=== PATIENT | female | born 1995 | race Caucasian/White ===

== ENCOUNTER 2019-05-03 20:48 | Emergency (ER) | payer BC, OTHER ==
[2019-05-03] MEDS ORDERED: KETOROLAC 30 MG/ML INJ ONE (21:34)
[2019-05-03] MEDS ORDERED: DIAZEPAM 5 MG TABLET ONE (21:34)
--- NOTE | 2019-05-03 21:53 | ER ---
Nurse's Notes [facility] Name: Nahomy Ayers Age: 23 yrs Sex: Female : 1995 Arrival Date: 05/03/2019 Time: 20:50 Bed 14 Private MD: Diagnosis: Low back pain;Radiculopathy, lumbosacral region Presentation: 05/03 21:00 Presenting complaint: Patient states: Low back pain for couple days mostly on right ca1 side and sometimes radiates to the front. Today, felt numbness of the R leg. Has Cooley Rods for scoliosis. Transition of care: patient was not received from another setting of care. Onset of symptoms was May 03, 2019. Risk Assessment: Do you want to hurt yourself or someone else? Patient reports no desire to harm self or others. Initial Sepsis Screen: Does the patient meet any 2 criteria? No. Patient's initial sepsis screen is negative. Does the patient have a suspected source of infection? No. Patient's initial sepsis screen is negative. Care prior to arrival: None. 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 - Coronavirus screen:: The patient has NOT traveled to [place] in the past 14 days. The patient has NOT had contact with known/suspected case of Coronavirus?. - Social history:: Smoking status: Patient reports the use of cigarette tobacco products, 5 cigarettes a day. - Ebola Screening: : Patient negative for fever greater than or equal to 101.5 degrees Fahrenheit, and additional compatible Ebola Virus Disease symptoms Patient denies exposure to infectious person Patient denies travel to an Ebola-affected area in the 21 days before illness onset No symptoms or risks identified at this time. Screenin:10 Abuse screen: Denies threats or abuse. Denies injuries from another. Nutritional rr5 screening: No deficits noted. Tuberculosis screening: No symptoms or risk factors identified. Fall Risk None identified. Total Metcalf Fall Scale indicates No Risk (0-24 pts). Assessment: 21:00 General: Appears in no apparent distress. uncomfortable, Behavior is calm, cooperative, rr5 appropriate for age. 21:00 Pain: Complains of pain in back Pain radiates to right leg Pain currently is 9 out of rr5 10 on a pain scale. Quality of pain is described as numb, Pain began gradually, Is intermittent. Neuro: Level of Consciousness is awake, alert, obeys commands, Oriented to person, place, time, situation, Appropriate for age. Cardiovascular: Capillary refill < 3 seconds Patient's skin is warm and dry. Respiratory: Airway is patent Respiratory effort is even, unlabored, Respiratory pattern is regular, symmetrical. GI: No signs and/or symptoms were reported involving the gastrointestinal system. : No signs and/or symptoms were reported regarding the genitourinary system. EENT: No signs and/or symptoms were reported regarding the EENT system. Derm: Skin is intact, is healthy with good turgor, Skin temperature is warm. Musculoskeletal: Capillary refill < 3 seconds, Reports numbness in right leg. 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 Patient states symptoms have improved. 22:22 Reassessment: Patient appears in no apparent distress at this time. Patient is alert, rr5 oriented x 3, equal unlabored respirations, skin warm/dry/pink. discharge instruction given and explained to patient without complaints made, pain reassessment 08/22. verbalized she is comfortable going home. Patient states symptoms have improved. Vital Signs: 21:00 BP 113 / 72; Pulse 75; Resp 16 S; Temp 98(TE); Pulse Ox 100% on R/A; Weight 58.97 kg ca1 (R); Height 5 ft. 3 in. (160.02 cm) (R); 21:30 BP 110 / 67; Pulse 70; Resp 15; Pulse Ox 98% ; Pain 9/10; rr5 22:26 BP 121 / 74; Pulse 64; Resp 16; Temp 98.2; Pulse Ox 100% ; rr5 21:00 Body Mass Index 23.03 (58.97 kg, 160.02 cm) ca1 ED Course: 20:50 Patient arrived in ED. cl3 20:57 [facility]C [facility] snw 20:57 Jose David Rudd MD is Attending Physician. snw 21:00 Arm band placed on right wrist. ca1 21:02 Ben Chávez, RN is Primary Nurse. rr5 21:03 Triage completed. ca1 21:05 Patient has correct armband on for positive identification. Bed in low position. Call rr5 light in reach. Pulse ox on. NIBP on. 21:13 Urine Microscopic Only Sent. ds4 21:13 Urine Culture Sent. ds4 21:14 Urine Dipstick--Ancillary (enter results) Sent. ds4 22:25 No provider procedures requiring assistance completed. Patient did not have IV access rr5 during this emergency room visit. Administered Medications: 21:34 Drug: TORadol 30 mg Route: IM; Site: right deltoid; rr5 22:15 Follow up: Response: No adverse reaction; Pain is decreased rr5 21:35 Drug: Valium 5 mg Route: PO; rr5 22:15 Follow up: Response: No adverse reaction; Temperature is decreased rr5 Outcome: 21:52 Discharge ordered by MD. snw 22:25 Discharged to home ambulatory, with family. rr5 22:25 Condition: stable 22:25 Discharge instructions given to patient, Instructed on discharge instructions, follow up and referral plans. medication usage, Demonstrated understanding of instructions, follow-up care, medications, Prescriptions given X 2. 22:29 Patient left the ED. rr5 Signatures: Reema Nixon FNP-C LAND RESOURCE SPECIALIST-Csnw Nasim Kinsey ds4 Ben Chávez RN RN rr5 Berkley Mejias RN RN ca1 Lillie Iqbal cl3 Corrections: (The following items were deleted from the chart) 22:28 22:26 BP 121 / 74; Pulse 64bpm; Resp 16bpm; Pulse Ox 100%; Temp 17F; rr5 rr5
--- NOTE | 2019-05-03 21:54 | EDPHYS ---
Physician Documentation [facility] Name: Nahomy Ayers Age: 23 yrs Sex: Female : 1995 Arrival Date: 05/03/2019 Time: 20:50 Bed 14 Private MD: ED Physician Jose David Rudd HPI: 05/03 21:17 This 23 yrs old Female presents to ER via Ambulatory with complaints of Low snw Back Pain, Numbness In Legs. 21:17 The patient presents with pain that is acute, that is chronic, and decreased range of snw motion. The symptoms are located in the low back. The pain radiates to the right hip and lateral aspect of right thigh. The problem was sustained when bending over, from a chronic condition, the patient has known disc disease. Onset: The symptoms/episode began/occurred this morning. Associated signs and symptoms: Pertinent positives: numbness. Severity of symptoms: At their worst the symptoms were moderate, severe. The patient has experienced similar episodes in the past, chronically. It is unknown whether or not the patient has recently seen a physician. 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 - Coronavirus screen:: The patient has NOT traveled to [place] in the past 14 days. The patient has NOT had contact with known/suspected case of Coronavirus?. - Social history:: Smoking status: Patient reports the use of cigarette tobacco products, 5 cigarettes a day. - Ebola Screening: : Patient negative for fever greater than or equal to 101.5 degrees Fahrenheit, and additional compatible Ebola Virus Disease symptoms Patient denies exposure to infectious person Patient denies travel to an Ebola-affected area in the 21 days before illness onset No symptoms or risks identified at this time. ROS: 21:15 Constitutional: Negative for fever, chills, and weight loss, Eyes: Negative for injury, snw pain, redness, and discharge, ENT: Negative for injury, pain, and discharge, Neck: Negative for injury, pain, and swelling, Cardiovascular: Negative for chest pain, palpitations, and edema, Respiratory: Negative for shortness of breath, cough, wheezing, and pleuritic chest pain, Abdomen/GI: Negative for abdominal pain, nausea, vomiting, diarrhea, and constipation, Back: Negative for injury, hx of back pain secondary to scoliosis, bent this am and "got stuck", pt states right lateral hip and thigh with tingling and paresthesias : Negative for injury, bleeding, discharge, and swelling, MS/Extremity: Negative for injury and deformity, Skin: Negative for injury, rash, and discoloration, Neuro: Negative for headache, weakness, numbness, tingling, and seizure. Exam: 21:14 Constitutional: This is a well developed, well nourished patient who is awake, alert, snw and in no acute distress. Head/Face: Normocephalic, atraumatic. Eyes: Pupils equal round and reactive to light, extra-ocular motions intact. Lids and lashes normal. Conjunctiva and sclera are non-icteric and not injected. Cornea within normal limits. Periorbital areas with no swelling, redness, or edema. ENT: Nares patent. No nasal discharge, no septal abnormalities noted. Tympanic membranes are normal and external auditory canals are clear. Oropharynx with no redness, swelling, or masses, exudates, or evidence of obstruction, uvula midline. Mucous membranes moist. Neck: Trachea midline, no thyromegaly or masses palpated, and no cervical lymphadenopathy. Supple, full range of motion without nuchal rigidity, or vertebral point tenderness. No Meningismus. Chest/axilla: Normal chest wall appearance and motion. Nontender with no deformity. No lesions are appreciated. Cardiovascular: Regular rate and rhythm with a normal S1 and S2. No gallops, murmurs, or rubs. Normal PMI, no JVD. No pulse deficits. Respiratory: Lungs have equal breath sounds bilaterally, clear to auscultation and percussion. No rales, rhonchi or wheezes noted. No increased work of breathing, no retractions or nasal flaring. Abdomen/GI: Soft, non-tender, with normal bowel sounds. No distension or tympany. No guarding or rebound. No evidence of tenderness throughout. Skin: Warm, dry with normal turgor. Normal color with no rashes, no lesions, and no evidence of cellulitis. MS/ Extremity: Pulses equal, no cyanosis. Neurovascular intact. Full, normal range of motion. Neuro: Awake and alert, GCS 15, oriented to person, place, time, and situation. Cranial nerves II-XII grossly intact. Motor strength 5/5 in all extremities. Sensory grossly intact. Cerebellar exam normal. Normal gait. Psych: Awake, alert, with orientation to person, place and time. Behavior, mood, and affect are within normal limits. 21:14 Back: pain, that is moderate, ROM is painful, CVA tenderness, is absent, muscle spasm, is not present. Vital Signs: 21:00 BP 113 / 72; Pulse 75; Resp 16 S; Temp 98(TE); Pulse Ox 100% on R/A; Weight 58.97 kg ca1 (R); Height 5 ft. 3 in. (160.02 cm) (R); 21:30 BP 110 / 67; Pulse 70; Resp 15; Pulse Ox 98% ; Pain 9/10; rr5 22:26 BP 121 / 74; Pulse 64; Resp 16; Temp 98.2; Pulse Ox 100% ; rr5 21:00 Body Mass Index 23.03 (58.97 kg, 160.02 cm) ca1 MDM: 21:03 Patient medically screened. snw 21:53 Data reviewed: vital signs, nurses notes. Data interpreted: Pulse oximetry: on room air snw is 100 %. Interpretation: normal. Counseling: I had a detailed discussion with the patient and/or guardian regarding: the historical points, exam findings, and any diagnostic results supporting the discharge/admit diagnosis, lab results, the need for outpatient follow up, to return to the emergency department if symptoms worsen or persist or if there are any questions or concerns that arise at home. Response to treatment: the patient's symptoms have markedly improved after treatment. Special discussion: Based on the history and exam findings, there is no indication for further emergent testing or inpatient evaluation. I discussed with the patient/guardian the need to see the back specialist for further evaluation of the symptoms. I discussed with the patient/guardian the need to see the primary care provider for further evaluation of the symptoms. 05/03 20:58 Order name: Urine Culture snw 05/03 20:58 Order name: Urine Microscopic Only; Complete Time: 22:25 snw 05/03 21:13 Order name: Urine Dipstick--Ancillary (enter results); Complete Time: 22:09 ds4 05/03 21:14 Order name: Urine --Ancillary (enter results); Complete Time: 22:09 ds4 05/03 20:58 Order name: Urine Test (obtain specimen); Complete Time: 21:13 snw 05/03 20:58 Order name: Urine Dipstick-Ancillary (obtain specimen); Complete Time: 21:13 snw Administered Medications: 21:34 Drug: TORadol 30 mg Route: IM; Site: right deltoid; rr5 22:15 Follow up: Response: No adverse reaction; Pain is decreased rr5 21:35 Drug: Valium 5 mg Route: PO; rr5 22:15 Follow up: Response: No adverse reaction; Temperature is decreased rr5 Disposition: 05/04 08:20 Co-signature as Attending Physician, Jose David Rudd MD I agree with the assessment and tw4 plan of care. Disposition: 05/03/19 21:52 Discharged to Home. Impression: Low back pain, Radiculopathy, lumbosacral region. - Condition is Stable. - Discharge Instructions: Back Pain, Adult, Lumbosacral Radiculopathy, Musculoskeletal Pain, Cryotherapy, Rehydration, Adult, Heat Therapy. - Prescriptions for Diclofenac Sodium 75 mg Oral Tablet Sustained Release - take 1 tablet by ORAL route 2 times per day; 30 tablet. orphenadrine citrate 100 mg Oral Tablet Sustained Release - take 1 tablet by ORAL route 2 times per day As needed; 20 tablet. - Work release form, Medication Reconciliation Form, Thank You Letter, Antibiotic Education, Prescription Opioid Use form. - Follow up: Emergency Department; When: As needed; Reason: Worsening of condition. Follow up: Private Physician; When: 2 - 3 days; Reason: Recheck today's complaints, Continuance of care, Re-evaluation by your physician. - Problem is an acute exacerbation. - Symptoms are unchanged. Signatures: Dispatcher [employer] EDMS Reema Nixon, CORNEL-C MEAL ATTENDANT-Csnw Jose David Rudd MD MD tw4 Ben Chávez RN RN rr5 Berkley Mejias RN RN ca1 Corrections: (The following items were deleted from the chart) 02/19 22:29 21:52 05/03/2019 21:52 Discharged to Home. Impression: Low back pain; Radiculopathy, rr5 lumbosacral region. Condition is Stable. Forms are Medication Reconciliation Form, Thank You Letter, Antibiotic Education, Prescription Opioid Use. Follow up: Emergency Department; When: As needed; Reason: Worsening of condition. Follow up: Private Physician; When: 2 - 3 days; Reason: Recheck today's complaints, Continuance of care, Re-evaluation by your physician. Problem is an acute exacerbation. Symptoms are unchanged. snw
[2019-05-03 22:04] LABS: Urine Blood NEGATIVE (NEG); Urine Glucose NEGATIVE (NEG); Urine Protein NEGATIVE (NEG); Urine Specific Gravity >1.030 (1.005-1.030)
[2019-05-03 22:22] LABS: Urine Culture Reflex Order NOT NEEDED
[2019-05-03 22:23] LABS: Urine Bacteria 20-50 /HPF (<20); Urine RBC <5 /HPF (NONE SEEN)
[2019-05-03 23:24] VITALS: BP 121/74; TEMP 98.2; O2SAT 100
== END 2019-05-03 22:29 | disposition home or self-care (01) ==
LOC: ER 20:48
DX: M54.17 Radiculopathy, lumbosacral region (principal)
CPT/HCPCS: 81003; 81015; 81025; 87086; 87088; 96372; 99284

== ENCOUNTER 2021-02-09 21:13 | Emergency (ER) | payer BC, OTHER ==
[2021-02-09] MEDS ORDERED: ACETAMINOPHEN 500 MG TAB ONE (23:31)
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
[2021-02-09 23:57] VITALS: TEMP 98.5; O2SAT 99
[2021-02-09 23:58] VITALS: BP 120/48
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
== END 2021-02-09 23:52 | disposition home or self-care (01) ==
LOC: ER 21:13
DX: M25.552 Pain in left hip (principal); V40.0XXA Car driver injured in collision with pedestrian or animal in nontraffic accident, initial encounter; Y93.89 Activity, other specified; Y92.410 Unspecified street and highway as the place of occurrence of the external cause; Z88.1 Allergy status to other antibiotic agents
CPT/HCPCS: 99283

== ENCOUNTER 2023-02-25 10:54 | Emergency (ER) | payer SELFPAY ==
--- OUTSIDE RECORDS SUMMARY | 2023-02-25 10:56 | XMS REPORT | Continuity of Care Document ---
Author Name Unknown Address [address] [place] [address] [facility] thconnect Address 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 Name Role Phone JOCELYNE CORDON Primary Care Physician Unav ailable Yohan Fernandez MD Attending Clinician YOHAN FERNANDEZ Attending Clinician Unavaila ble YOHAN FERNANDEZ Admitting Clinician Unavaila ble Problems Condition Name Condition Details Condition Category Status Onset Date Resolution Date Last Treatment Date Treating Clinician Comments Source Uterine size-date discrepanc y, antepartum , unspecifie d trimester Uterine size-date discrepanc y, antepartum , unspecifie d trimester Disease Active 10-09 00:00: 00 [facility] Chlamydia trachomati s infection of lower genitourin kiana sites Chlamydia trachomati s infection of lower genitourin kiana sites Disease Active 09-30 00:00: 00 [facility] Allergies, Adverse Reactions, Alerts Allergy Name Allergy Type Status Severity Reaction(s) Onset Date Inactive Date Treating Clinician Comments Source Amoxicil jeannette-Pot Clavulan ate Propensi ty to adverse reaction s Active Swelling 03-22 00:00: 00 [facility] AMOXICIL JEANNETTE-POT CLAVULAN ATE DRUG Active Swelling 03-22 00:00: 00 [facility] NO KNOWN ALLERGIE S Drug Class Active [facility] Social History Social Habit Start Date Stop Date Quantity Comments Source Exposure to SARS-CoV-2 (event) 2022-03-12 00:00:00 2022-03-22 19:57:00 Not sure [facility] Alcohol intake 2022-03-22 00:00:00 2022-03-22 00:00:00 Current non-drinker of alcohol (finding) [facility] Tobacco use and exposure 2014-09-25 00:00:00 2014-09-25 00:00:00 Smokeless tobacco non-user [facility] History of tobacco use 2014-09-18 00:00:00 Cigarette Smoker [facility] Sex Assigned At 1995 00:00:00 1995 00:00:00 [facility] Smoking Status Start Date Stop Date Source Ex-smoker 2014-09-25 00:00:00 2014[facility] Ordered Medication Name Filled Medication Name Start Date Stop Date Current Medication? Ordering Clinician Indication Dosage Frequency Signature (SIG) Comments Components Source ibuprofen (IBU) tablet 600 mg 03-23 01:00: 00 03-23 01:08 :00 No 600mg 600 mg, Oral, ONCE, 1 dose, On 03/22/22 at 1900, BORA [facility] vitamin w/FA (PRENATABS RX) tablet 09-25 00:00: 00 Yes 1{tbl} Take 1 Tab by mouth daily. [facility] Vital Signs Vital Name Observation Time Observation Value Comments S ource Systolic blood pressure 2022-03-23 00:34:00 129 mm[Hg] [place] [facility] Diastolic blood pressure 2022-03-23 00:34:00 87 mm[Hg] [place] [facility] Heart rate 2022-03-23 00:34:00 85 /min [facility] Body temperature 2022-03-23 00:34:00 37.11 [place] [facility] Respiratory rate 2022-03-23 00:34:00 18 /min [facility] Body height 2022-03-23 00:34:00 160 cm [facility] Body weight 2022-03-23 00:34:00 58.968 kg [facility] BMI 2022-03-23 00:34:00 23.03 kg/m2 [facility] Oxygen saturation in Arterial blood by Pulse oximetry 2022-03-23 00:34:00 100 /min [facility] Procedures Procedure Date / Time Performed Performing Clinicia n Source XR ANKLE <3 VW LEFT 2022-03-23 01:16:42 Guy Fernandez [facility] XR FOOT 3+ VW LEFT 2022-03-23 01:16:42 Danii Fernandez [facility] NOTICE OF PRIVACY PRACTICES 2022-03-23 00:30:17 Doctor Unassigned, [place] [facility] Encounters Start Date/Time End Date/Time Encounter Type Admission Type Attending Clinicians Care Facility Care Department Encounter ID Source 2022-03-22 18:35:00 2022-03-22 19:59:00 Emergency Yohan Fernandez [facility] [id number] [facility] 2022-03-22 18:35:00 2022-03-22 19:59:00 Emergency X YOHAN FERNANDEZ ERT [id number] [facility]
[2023-02-25 11:40] LABS: SARS-CoV-2 Antigen Rapid Res Negative (Negative)
--- NOTE | 2023-02-25 13:22 | ER ---
Nurse's Notes [facility] Name: Nahomy Ayers Age: 27 yrs Sex: Female : 1995 Arrival Date: 02/25/2023 Time: 10:54 Bed 10 Private MD: Diagnosis: Influenza due to other identified influenza virus with gastrointestinal manifestations-influenza B;Fever, unspecified;Influenza due to other identified influenza virus with other respiratory manifestations-Influenza B Presentation: 02/25 11:09 Chief complaint: Patient states: Congested, headache, body aches, sore throat and nj1 diarrhea, onset Wednesday, getting worse. Denies fever. Has taken dayquil, mucinex and flonase. Coronavirus screen: Vaccine status: Patient reports being unvaccinated. Ebola Screen: Patient denies travel to an Ebola-affected area in the 21 days before illness onset. Initial Sepsis Screen: Does the patient meet any 2 criteria? HR > 90 bpm. No. Patient's initial sepsis screen is negative. Does the patient have a suspected source of infection? No. Patient's initial sepsis screen is negative. Risk Assessment: Do you want to hurt yourself or someone else? Patient reports no desire to harm self or others. Onset of symptoms was February 21, 2023. 11:09 Method Of Arrival: Ambulatory [facility] 11:09 Acuity: PHANI 4 sc1 Triage Assessment: 13:39 General: Appears ill, Behavior is cooperative, appropriate for age, anxious. Pain: bp Complains of pain in head. Historical: - Allergies: 11:12 Augmentin; nj1 - PMHx: 11:12 scoliosis; nj1 - PSHx: 11:12 Decompression surgery for Chiari malformation; nj1 - Immunization history:: Client reports having NOT received the Covid vaccine. - Social history:: Smoking status: Patient reports the use of cigarette tobacco products, smokes one-half pack cigarettes per day. - Family history:: not pertinent. Screenin:39 [facility] ED Fall Risk Assessment (Adult) History of falling in the last 3 months, bp including since admission No falls in past 3 months (0 pts). Abuse screen: Denies threats or abuse. Denies injuries from another. Nutritional screening: No deficits noted. Tuberculosis screening: No symptoms or risk factors identified. Vital Signs: 11:09 BP 135 / 81; Pulse 101; Resp 18; Temp 98.3(O); Pulse Ox 100% ; Weight 63.5 kg; Height 5 nj1 ft. 3 in. ; Pain 8/10; 11:09 Body Mass Index 24.80 (63.50 kg, 160.02 cm) nj1 11:09 Pain Scale: Adult [facility] ED Course: 10:55 Patient arrived in ED. rosendo 10:56 Adolfo Hayward MD is Attending Physician. [facility] 11:12 Triage completed. nj1 11:12 Arm band placed on right wrist. sc1 12:13 Jacob Mcrae, RN is Primary Nurse. bp 13:39 Patient has correct armband on for positive identification. bp 13:39 No provider procedures requiring assistance completed. Patient did not have IV access bp during this emergency room visit. Administered Medications: 13:33 CANCELLED (Duplicate Order): [id number] mg PO once rosendo 13:38 Drug: Oseltamivir PO 75 mg PO once Route: PO; bp 13:39 Follow up: Response: No adverse reaction bp 13:38 Not Given (Patient Refused): [id number] mg IM once bp 13:38 Drug: Ondansetron Oral Disintegrating Tablet Oral Disintegrating Tablet 4 mg PO once bp Route: PO; 13:39 Follow up: Response: No adverse reaction bp Medication: 13:39 VIS not applicable for this client. bp Outcome: 13:21 Discharge ordered by . rosendo 13:39 Discharged to home ambulatory, bp 13:39 Condition: stable 13:39 Discharge instructions given to patient, Instructed on discharge instructions, follow up and referral plans. medication usage, Demonstrated understanding of instructions, follow-up care, medications, Prescriptions given X 3, 13:40 Patient left the ED. bp Signatures: Adolfo Hayward MD MD cha Peltier, Brian, RN RN bp Shawanda Uriostegui, RN RN nj1
--- NOTE | 2023-02-25 13:22 | EDPHYS ---
Physician Documentation [facility] Name: Nahomy Ayers Age: 27 yrs Sex: Female : 1995 Arrival Date: 02/25/2023 Time: 10:54 Bed 10 Private MD: ED Physician Adolfo Hayward HPI: 02/25 13:17 This 27 yrs old Female presents to ER via Ambulatory with complaints of Flu rosendo Symptoms. 13:17 Modifying factors: The symptoms are alleviated by nothing, the symptoms are aggravated rosendo by nothing. The patient presents to the emergency department with diarrhea, that is intermittent. Possible causes: sick contacts. The symptoms are aggravated by movement, The symptoms are alleviated by remaining still. Associated signs and symptoms: Pertinent positives: abdominal pain, diarrhea. The patient reports fever, not measured (subjective). Historical: - Allergies: 11:12 Augmentin; nj1 - PMHx: 11:12 scoliosis; nj1 - PSHx: 11:12 Decompression surgery for Chiari malformation; nj1 - Immunization history:: Client reports having NOT received the Covid vaccine. - Social history:: Smoking status: Patient reports the use of cigarette tobacco products, smokes one-half pack cigarettes per day. - Family history:: not pertinent. ROS: 13:17 Constitutional: Negative for fever, chills, and weight loss, Eyes: Negative for injury, rosendo pain, redness, and discharge, ENT: Negative for injury, pain, and discharge, Neck: Negative for injury, pain, and swelling, Cardiovascular: Negative for chest pain, palpitations, and edema, Abdomen/GI: Negative for abdominal pain, nausea, vomiting, diarrhea, and constipation, Back: Negative for injury and pain, : Negative for injury, bleeding, discharge, and swelling, MS/Extremity: Negative for injury and deformity, Skin: Negative for injury, rash, and discoloration, Neuro: Negative for headache, weakness, numbness, tingling, and seizure, Psych: Negative for depression, anxiety, suicide ideation, homicidal ideation, and hallucinations, Allergy/Immunology: Negative for hives, rash, and allergies, Endocrine: Negative for neck swelling, polydipsia, polyuria, polyphagia, and marked weight changes, Hematologic/Lymphatic: Negative for swollen nodes, abnormal bleeding, and unusual bruising, 13:17 Respiratory: Positive for cough, Exam: 13:17 Constitutional: This is a well developed, well nourished patient who is awake, alert, rosendo and in no acute distress. Head/Face: Normocephalic, atraumatic. Eyes: Pupils equal round and reactive to light, extra-ocular motions intact. Lids and lashes normal. Conjunctiva and sclera are non-icteric and not injected. Cornea within normal limits. Periorbital areas with no swelling, redness, or edema. ENT: Nares patent. No nasal discharge, no septal abnormalities noted. Tympanic membranes are normal and external auditory canals are clear. Oropharynx with no redness, swelling, or masses, exudates, or evidence of obstruction, uvula midline. Mucous membranes moist. Neck: Trachea midline, no thyromegaly or masses palpated, and no cervical lymphadenopathy. Supple, full range of motion without nuchal rigidity, or vertebral point tenderness. No Meningismus. Chest/axilla: Normal chest wall appearance and motion. Nontender with no deformity. No lesions are appreciated. Cardiovascular: Regular rate and rhythm with a normal S1 and S2. No gallops, murmurs, or rubs. Normal PMI, no JVD. No pulse deficits. Respiratory: Lungs have equal breath sounds bilaterally, clear to auscultation and percussion. No rales, rhonchi or wheezes noted. No increased work of breathing, no retractions or nasal flaring. Abdomen/GI: Soft, non-tender, with normal bowel sounds. No distension or tympany. No guarding or rebound. No evidence of tenderness throughout. Back: No spinal tenderness. No costovertebral tenderness. Full range of motion. Skin: Warm, dry with normal turgor. Normal color with no rashes, no lesions, and no evidence of cellulitis. MS/ Extremity: Pulses equal, no cyanosis. Neurovascular intact. Full, normal range of motion. Neuro: Awake and alert, GCS 15, oriented to person, place, time, and situation. Cranial nerves II-XII grossly intact. Motor strength 5/5 in all extremities. Sensory grossly intact. Cerebellar exam normal. Normal gait. Vital Signs: 11:09 BP 135 / 81; Pulse 101; Resp 18; Temp 98.3(O); Pulse Ox 100% ; Weight 63.5 kg; Height 5 nj1 ft. 3 in. ; Pain 8/10; 11:09 Body Mass Index 24.80 (63.50 kg, 160.02 cm) nj1 11:09 Pain Scale: Adult nj1 MDM: 10:56 Patient medically screened. [facility] 02/25 10:56 Order name: Flu; Complete Time: 13:12 [facility] 02/25 10:56 Order name: SARS RAPID; Complete Time: 13:12 [facility] 02/25 13:16 Order name: PO challenge; Complete Time: 13:38 [facility] Administered Medications: 13:33 CANCELLED (Duplicate Order): [id number] mg PO once rosendo 13:38 Drug: Oseltamivir PO 75 mg PO once Route: PO; bp 13:39 Follow up: Response: No adverse reaction bp 13:38 Not Given (Patient Refused): [id number] mg IM once bp 13:38 Drug: Ondansetron Oral Disintegrating Tablet Oral Disintegrating Tablet 4 mg PO once bp Route: PO; 13:39 Follow up: Response: No adverse reaction bp Disposition Summary: 02/25/23 13:21 Discharge Ordered Notes: Location: Home [facility] Problem: new [facility] Symptoms: have improved [facility] Condition: Stable [facility] Diagnosis - Influenza due to other identified influenza virus with gastrointestinal [facility] manifestations - influenza B - Fever, unspecified rosendo - Influenza due to other identified influenza virus with other respiratory [facility] manifestations - Influenza B Followup: [facility] - With: Private Physician - When: 2 - 3 days - Reason: Recheck today's complaints, Continuance of care, Re-evaluation by your physician Discharge Instructions: - Discharge Summary Sheet [facility] - Food Choices to Help Relieve Diarrhea, Adult [facility] - Diarrhea, Adult rosendo - Fever, Adult rosendo - Influenza, Adult [facility] - Pharyngitis [facility] - Upper Respiratory Infection, Adult, [id number] [facility] - Influenza, Adult, [id number] [facility] Forms: - Medication Reconciliation Form [facility] - Thank You Letter [facility] - Antibiotic Education [facility] - Prescription Opioid Use [facility] - Patient Portal Instructions [facility] - Leadership Thank You Letter [facility] Prescriptions: - ondansetron 4 mg Oral Tablet,disintegrating - take 1 tablet ORAL route daily for 5 days; 20 tablet; Refills: 0, Product rosendo Selection Permitted - Zithromax Z-Elroy 250 mg Oral Tablet - take 1 tablet ORAL route as directed for 5 days Day 1 - take two (2) tablets [facility] one time. Day 2, 3, 4 , 5 take one (1) tablet once daily.; 6 tablet; Refills: 0, Product Selection Permitted - Tamiflu 75 mg Oral capsule - take 1 tablet ORAL route every 12 hours for 5 days; 10 tablet; Refills: 0, rosendo Product Selection Permitted Signatures: Dispatcher [employer] Adolfo Egan MD MD cha Peltier, Brian RN RN bp Shawanda Uriostegui RN RN nj1 Corrections: (The following items were deleted from the chart) 13:33 13:12 AZITHromycin PO 500 mg PO once ordered. rosendo robbins
[2023-02-25] MEDS ORDERED: ONDANSETRON 4 MG (ODT) TAB ONE (13:30)
[2023-02-25] MEDS ORDERED: KETOROLAC 30 MG/ML INJ ONE (13:30)
[2023-02-25] MEDS ORDERED: OSELTAMIVIR 75 MG CAP PO ONE (13:31)
[2023-02-25 14:03] VITALS: BP 135/81; TEMP 98.3; O2SAT 100
== END 2023-02-25 13:40 | disposition home or self-care (01) ==
LOC: ER 10:54
DX: J10.2 Influenza due to other identified influenza virus with gastrointestinal manifestations (principal); J10.1 Influenza due to other identified influenza virus with other respiratory manifestations; Z11.52 Encounter for screening for COVID-19
CPT/HCPCS: 36415; 87804; 87811; 99283; Q0162

== ENCOUNTER 2023-09-05 07:56 | Emergency (ER) | payer SELFPAY ==
[2023-09-05] MEDS ORDERED: ACETAMINOPHEN 500 MG TAB ONE (08:20)
[2023-09-05] MEDS ORDERED: KETOROLAC 30 MG/ML INJ ONE (08:21)
[2023-09-05 09:17] LABS: SARS-CoV-2 Antigen CONTROL BLUE LINE VIS/BG OK
[2023-09-05 09:18] LABS: SARS-CoV-2 Antigen Rapid Res Positive (Negative)
--- NOTE | 2023-09-05 09:38 | ER ---
Nurse's Notes [facility] Name: Nahomy Ayers Age: 28 yrs Sex: Female : 1995 Arrival Date: 09/05/2023 Time: 07:56 Bed 19 Private MD: Diagnosis: COVID-19 Presentation: 09/04 08:06 Chief complaint: Patient states: Cough, congestion, NARANJO, fever since yesterday. Her ll1 child is also sick. No N/V/D. Coronavirus screen: Client denies travel out of the [place] in the last 14 days. chills, congestion, cough unrelated to allergies, fatigue, fever, headache, muscle pain, shaking with chills, Client presents with at least one sign or symptom that may indicate coronavirus-19. Standard/surgical mask placed on the client. Ebola Screen: Patient denies travel to an Ebola-affected area in the 21 days before illness onset. Initial Sepsis Screen: Does the patient meet any 2 criteria? No. Patient's initial sepsis screen is negative. Does the patient have a suspected source of infection? No. Patient's initial sepsis screen is negative. Risk Assessment: Do you want to hurt yourself or someone else? Patient reports no desire to harm self or others. Onset of symptoms was September 04, 2023. 08:06 Method Of Arrival: Ambulatory [facility] 08:06 Acuity: PHANI 4 ll1 Triage Assessment: 08:08 General: Appears uncomfortable, ill, Behavior is calm, cooperative, appropriate for ll1 age. General: Reports chills for fever for feeling ill for fatigue for. Pain: Complains of pain in head Pain currently is 10 out of 10 on a pain scale. Quality of pain is described as aching, throbbing, Pain began 1 day ago. Aggravated by coughing. EENT: Reports nasal congestion. Neuro: Reports headache weakness. Respiratory: Reports cough that is. Derm: Reports rash to chest. Musculoskeletal: Reports body aches. 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 - Infectious Disease History:: Denies. - Social history:: Smoking status: Patient reports the use of cigarette tobacco products, smokes one-half pack cigarettes per day. - Family history:: not pertinent. Screenin:34 [facility] ED Fall Risk Assessment (Adult) History of falling in the last 3 months, ll1 including since admission No falls in past 3 months (0 pts) Confusion or Disorientation No (0 pts) Intoxicated or Sedated No (0 pts) Impaired Gait No (0 pts) Mobility Assist Device Used No (0 pt) Altered Elimination No (0 pt) Score/Fall Risk Level 0 - 2 = Low Risk Maintained a safe environment, Hourly rounding (assess needs \T\ fall precautionary measures) done. Abuse screen: Denies threats or abuse. Nutritional screening: No deficits noted. Tuberculosis screening: No symptoms or risk factors identified. Assessment: 08:34 Reassessment: No changes from previously documented assessment. Patient and/or family ll1 updated on plan of care and expected duration. Pain level reassessed. Patient is alert, oriented x 3, equal unlabored respirations, skin warm/dry/pink. 09:47 Reassessment: No changes from previously documented assessment. Patient and/or family ll1 updated on plan of care and expected duration. Pain level reassessed. Patient is alert, oriented x 3, equal unlabored respirations, skin warm/dry/pink. Vital Signs: 08:06 BP 111 / 76; Pulse 100; Resp 18; Temp 99.3(O); Pulse Ox 95% on R/A; Weight 58.97 kg; ll1 Height 5 ft. 3 in. ; Pain 10/10; 08:52 BP 110 / 75; Pulse 83; Resp 17; Pulse Ox 97% on R/A; ll1 09:47 BP 121 / 72; Pulse 77; Resp 17; Pulse Ox 96% on R/A; Pain 5/10; ll1 08:06 Body Mass Index 23.03 (58.97 kg, 160.02 cm) ll1 08:06 Pain Scale: Adult ll1 09:47 Pain Scale: Adult ll1 ED Course: 07:58 Patient arrived in ED. im 07:59 Alexy Wilde MD is Attending Physician. rt 07:59 Arm band placed on Patient placed in an exam room, on a stretcher. ll1 08:08 Triage completed. ll1 08:12 Cris Blackman, RN is Primary Nurse. 08:28 Provided Education on: ER procedures and process. ll1 08:35 Ailin Iqbal, RN is Primary Nurse. ll1 08:35 Patient has correct armband on for positive identification. Bed in low position. Call ll1 light in reach. Client placed on continuous cardiac and pulse oximetry monitoring. NIBP monitoring applied. 09:48 No provider procedures requiring assistance completed. Patient did not have IV access ll1 during this emergency room visit. Administered Medications: 08:28 Drug: Ketorolac IM 15 mg IM once {Note: pain 10/10.} Route: IM; Site: right deltoid; ll1 09:48 Follow up: Response: No adverse reaction; Temperature is decreased; Pain is decreased; ll1 RASS: Alert and Calm (0) 08:29 Drug: Acetaminophen PO 1000 mg PO once Route: PO; ll1 09:48 Follow up: Response: No adverse reaction; Pain is decreased; RASS: Alert and Calm (0) ll1 Medication: 08:51 VIS not applicable for this client. ll1 Outcome: 09:38 Discharge ordered by . rt 09:48 Discharged to home ambulatory, ll1 09:48 Condition: stable 09:48 Discharge instructions given to patient, Instructed on discharge instructions, follow up and referral plans. Demonstrated understanding of instructions, follow-up care, 09:49 Patient left the ED. ll1 Signatures: Cris Blackman, YIFAN SAHA Ailin Iqbal RN RN ll1 Alexy Wilde MD MD rt Jo Townsend
--- NOTE | 2023-09-05 09:38 | EDPHYS ---
Physician Documentation [facility] Name: Nahomy Ayers Age: 28 yrs Sex: Female : 1995 Arrival Date: 09/05/2023 Time: 07:56 Bed 19 Private MD: ED Physician Alexy Wilde HPI: 09/04 17:35 This 28 yrs old Female presents to ER via Ambulatory with complaints of Flu Symptoms. rt 17:35 Patient presents to the ED with cough, congestion, malaise since yesterday. Patient rt does have sick contacts with her kids. Denies other acute complaints at this time, symptoms are moderate severity, no other aggravating or alleviating factors.. 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 - Infectious Disease History:: Denies. - Social history:: Smoking status: Patient reports the use of cigarette tobacco products, smokes one-half pack cigarettes per day. - Family history:: not pertinent. ROS: 17:35 Cardiovascular: Negative for chest pain, palpitations, and edema, Abdomen/GI: Negative rt for abdominal pain, nausea, vomiting, diarrhea, and constipation, 17:35 Constitutional: Positive for body aches, fatigue, fever, 17:35 Respiratory: Positive for cough, shortness of breath, Exam: 17:35 Constitutional: This is a well developed, well nourished patient who is awake, alert, rt and in no acute distress. Head/Face: Normocephalic, atraumatic. Chest/axilla: Normal chest wall appearance and motion. Nontender with no deformity. No lesions are appreciated. Cardiovascular: Regular rate and rhythm with a normal S1 and S2. No gallops, murmurs, or rubs. Normal PMI, no JVD. No pulse deficits. Respiratory: Lungs have equal breath sounds bilaterally, clear to auscultation and percussion. No rales, rhonchi or wheezes noted. No increased work of breathing, no retractions or nasal flaring. Skin: Warm, dry with normal turgor. Normal color with no rashes, no lesions, and no evidence of cellulitis. MS/ Extremity: Pulses equal, no cyanosis. Neurovascular intact. Full, normal range of motion. Neuro: Awake and alert, GCS 15, oriented to person, place, time, and situation. Cranial nerves II-XII grossly intact. Motor strength 5/5 in all extremities. Sensory grossly intact. Cerebellar exam normal. Normal gait. 17:35 ENT: Mild posterior pharyngeal erythema without exits tonsil hypertrophy, uvula is midline. Vital Signs: 08:06 BP 111 / 76; Pulse 100; Resp 18; Temp 99.3(O); Pulse Ox 95% on R/A; Weight 58.97 kg; ll1 Height 5 ft. 3 in. ; Pain 10/10; 08:52 BP 110 / 75; Pulse 83; Resp 17; Pulse Ox 97% on R/A; ll1 09:47 BP 121 / 72; Pulse 77; Resp 17; Pulse Ox 96% on R/A; Pain 5/10; ll1 08:06 Body Mass Index 23.03 (58.97 kg, 160.02 cm) ll1 08:06 Pain Scale: Adult ll1 09:47 Pain Scale: Adult ll1 MDM: 08:12 Patient medically screened. rt 17:35 Differential Diagnosis Flu, strep, COVID, viral syndrome. Data reviewed: vital signs, rt nurses notes, lab test result(s). Test considered but Not performed: X-ray: Clear breath sounds, low suspicion for pneumonia, x-ray not indicated. Counseling: I had a detailed discussion with the patient and/or guardian regarding the historical points, exam findings, and any diagnostic results supporting the discharge/admit diagnosis, lab results, the need for outpatient follow up, to return to the emergency department if symptoms worsen or persist or if there are any questions or concerns that arise at home. 09/04 08:19 Order name: SARS RAPID; Complete Time: 09:33 rt 09/04 08:19 Order name: Influenza Screen (a \T\ B); Complete Time: 09:33 rt 09/04 08:19 Order name: Strep rt 09/04 09:22 Order name: Throat Culture EDMS Administered Medications: 08:28 Drug: Ketorolac IM 15 mg IM once {Note: pain 10/10.} Route: IM; Site: right deltoid; ll1 09:48 Follow up: Response: No adverse reaction; Temperature is decreased; Pain is decreased; ll1 RASS: Alert and Calm (0) 08:29 Drug: Acetaminophen PO 1000 mg PO once Route: PO; 1 09:48 Follow up: Response: No adverse reaction; Pain is decreased; RASS: Alert and Calm (0) ll1 Disposition Summary: 09/05/23 09:38 Discharge Ordered Notes: Location: Home rt Problem: new rt Symptoms: are unchanged rt Condition: Stable rt Diagnosis - COVID-19 rt Followup: rt - With: Private Physician - When: 5 - 6 days - Reason: Discharge Instructions: - Discharge Summary Sheet [facility] - COVID-19 rt Forms: - Work release form ll1 - Medication Reconciliation Form rt - Antibiotic Education rt - Prescription Opioid Use rt - Patient Portal Instructions rt - Leadership Thank You Letter rt Signatures: Dispatcher [employer] Ailin Magana RN RN ll1 Alexy Wilde MD MD rt Corrections: (The following items were deleted from the chart) 08:19 08:19 SARS-COV-2 Antigen Rapid+I.LAB.BRZ ordered. EDMS EDMS 08:19 08:19 Influenza Screen (A \T\ B)+BA.LAB.BRZ ordered. EDMS EDMS 08:19 08:19 Group A Streptococcus Rapid Sc+BA.LAB.BRZ ordered. EDMS EDMS
[2023-09-05 10:20] VITALS: BP 121/72; TEMP 99.3; O2SAT 96
== END 2023-09-05 09:49 | disposition home or self-care (01) ==
LOC: ER 07:56
DX: U07.1 COVID-19 (principal)
CPT/HCPCS: 36415; 87070; 87081; 87804; 87811; 96372; 99284